=== PATIENT | female | born 1980 | race Caucasian/White ===

== ENCOUNTER 2022-10-07 11:15 | Emergency (ER) | payer OTHER, SELFPAY ==
[2022-10-07 11:30] VITALS: BP 125/74; PULSE 95; RESP 15; O2SAT 96; BMI 20.7
--- NOTE | 2022-10-07 12:09 | ED_ITS ---
HPI - Animal Bite General: Chief Complaint: Animal Bite Stated Complaint: Bite by [place] on right foot Time Seen by Provider: 10/07/22 11:57 History of Present Illness: 42-year-old female presents emergency room after she was bitten by copperhead snake about an hour ago. Present emergency room with mild swelling and discoloration on the lateral aspect of right foot. Has any nausea, difficulty breathing, difficulty swallowing, or chills. Patient further reviews that plastic bite went through her shoe. Associated symptoms: Deny headache(s) Review of Systems General: Reports: 10 or more systems reviewed and unremarkable except in HPI and below GI: Denies: abdominal pain, nausea, vomiting, hematemesis, coffee ground emesis, dysphagia or heartburn : Denies: flank pain, difficulty voiding, urinary frequency or urinary urgency Skin/Breast: Reports: skin swelling and other (snake bite ) Neuro: Denies: headache(s), numbness in extremities, weakness in extremities, lack of coordination, frequent falls, dizziness, vertigo or confusion All/Imm: Denies: urticaria, throat swelling, tongue swelling, facial swelling, acute wheezing, itchy eyes, seasonal rhinorrhea or food intolerance Physical Exam Const: COMMON NORMALS: no acute distress, average body habitus, patient oriented x3, no limitations, healthy appearing, alert and well nourished Eye: COMMON NORMALS: Equal, round and reactive pupils present, EOMs intact bilaterally, conjunctivae normal, no scleral icterus, no papilledema, normal visual owen by confrontation and fundi normal bilaterally CONJUNCTIVA: Yes conjunctivae normal PUPIL: Yes Equal, round and reactive pupils present DIRECT OPHTHALMOSCOPY: Yes no papilledema and Yes fundi normal bilaterally Neck/C-Spine: COMMON NORMALS: no JVD Lymph: LYMPHATIC: no lymphadenopathy noted Chest: COMMONS NORMALS: normal inspection of the chest, normal palpation of entire chest wall, normal inspection of the breasts and normal palpation of the breasts Breast/axilla inspection: Yes normal inspection of the breasts BREAST/AXILLA PALPATION: Yes normal palpation of the breasts Resp: COMMON NORMALS: normal respiratory effort, No retractions, No use of accessory muscles, clear to auscultation bilaterally and percussion normal AUSCULTATION: clear to auscultation bilaterally PERCUSSION: percussion normal Cardio: COMMON NORMALS: no JVD, regular rate, regular rhythm, S1 normal heart sound present, S2 normal heart sound present, No gallops present (Cardio), No clicks present (Cardio), No murmurs present (Cardio), No rub (Cardio) and Peripheral pulses 2+ throughout RATE: regular rate RHYTHM: regular rhythm HEART SOUNDS: S1 normal heart sound present and S2 normal heart sound present PERIPHERAL PULSES: Peripheral pulses 2+ throughout GI: COMMON NORMALS: Normal to inspection, nondistended, normoactive bowel sounds present, Soft to palpation, non-tender, No hepatosplenomegaly present, no masses and no bruits PALPATION: Yes Soft to palpation and Yes No hepatosplenomegaly present Extremity: OTHER: lateral aspect of right foot with some puncture wound and localized swelling and discoloration. Neuro: COMMON NORMALS: patient oriented x3 SENSORIUM/ORIENTATION: Yes alert Skin: NARRATIVE SKIN EXAM: Right foot around the lateral aspect with mild to moderate swelling with a single puncture wound noted. Course Reevaluation(s): Reevaluation #1: At 1:46 PM patient reexamined and noticed only 1 bite site with some mild swelling to the lateral aspect of the foot. No diffuse swelling beyond the ankle. Consultations: Consultation #1: At 12 PM discussed patient with poison control. Based on the patient's presenting symptoms and current situation she recommended observation for 6 hours. Mended obtaining basic labs including CBC, CMP and coags. No antivenom recommended at this time. Vital Signs: Vital signs: Vital Signs Pulse Rate 95 10/07/22 11:30 Respiratory Rate 15 10/07/22 11:30 Blood Pressure 125/74 10/07/22 11:30 Pulse Oximetry 96 10/07/22 11:30 Oxygen Delivery Me thod Room Air 10/07/22 11:30 MDM - Animal Bite Medical Decision Making Patient made comfortable emergency room room had extensive work-up and monitored for few hours. Was to monitor patient for about 6 to 7 hours according to poison control. And after waiting about 2 hours decided to leave AGAINST MEDICAL ADVICE. Leaving AGAINST MEDICAL ADVICE was thoroughly discussed. We discharged him with steroid and antibiotics. She was told to return to emergency room if increased swelling, pain and swelling beyond or around the ankle. Differential Diagnosis Likely bite by animal, cat bite, dog bite and rabies contact Lab Data 10/07/22 12:20 10/07/22 12:20 Laboratory Results WBC 7.9 10^3/uL (4.0-10.0) 10/07/22 12:20 RBC 3.71 10^6/uL (4.1-5.3) L 10/07/22 12:20 Hgb 12.8 g/dL (11.5-15.3) 10/07/22 12:20 Hct 37.4 % (37.0-47.0) 10/07/22 12:20 MCV 100.8 fl (81-99) H 10/07/22 12:20 MCH 34.5 pg (28.0-34.0) H 10/07/22 12:20 MCHC 34.2 g/dL (30.0-36.0) 10/07/22 12:20 RDW 13.0 % (12.1-15.1) 10/07/22 12:20 Plt Count 328 10^3/cmm (130-400) 10/07/22 12:20 MPV 9.4 fL (7.4-10.4) 10/07/22 12:20 Neut % (Auto) 66.9 % 10/07/22 12:20 Lymph % (Auto) 24.3 % 10/07/22 12:20 [place] % (Auto) 5.4 % 10/07/22 12:20 Eos % (Auto) 2.1 % 10/07/22 12:20 Baso % (Auto) 1.0 % 10/07/22 12:20 Neut # (Auto) 5.30 10^3/uL (1.8-7.7) 10/07/22 12:20 Lymph # (Auto) 1.9 10^3/uL (0.8-4.8) 10/07/22 12:20 [place] # (Auto) 0.4 10^3/uL (0.2-0.9) 10/07/22 12:20 Eos # (Auto) 0.2 10^3/uL (0.0-0.8) 10/07/22 12:20 Baso # (Auto) 0.1 10^3/uL (0.0-0.1) 10/07/22 12:20 Nucleated RBC % (auto) 0 % 10/07/22 12:20 Nucleated RBCs # 0.0 /100WBC 10/07/22 12:20 PT 13.70 SECONDS (12.1-14.9) 10/07/22 12:47 INR 1.02 (0.8-1.2) 10/07/22 12:47 APTT 25.3 SECONDS (23.9-36.7) 10/07/22 12:47 Sodium Cancelled 10/07/22 12:20 Potassium Cancelled 10/07/22 12:20 Chloride Cancelled 10/07/22 12:20 Carbon Dioxide Cancelled 10/07/22 12:20 Anion Gap Cancelled 10/07/22 12:20 BUN Cancelled 10/07/22 12:20 Creatinine Cancelled 10/07/22 12:20 GFR Calculation Cancelled 10/07/22 12:20 Glucose Cancelled 10/07/22 12:20 Calculated Osmolality Cancelled 10/07/22 12:20 Calcium Cancelled 10/07/22 12:20 Total Bilirubin Cancelled 10/07/22 12:20 AST Cancelled 10/07/22 12:20 ALT Cancelled 10/07/22 12:20 Alkaline Phosphatase Cancelled 10/07/22 12:20 Total Protein Cancelled 10/07/22 12:20 Albumin Cancelled 10/07/22 12:20 Globulin Cancelled 10/07/22 12:20 Discharge Plan Discharge Patient Disposition: Left Against Medical Advice Clinical Impression: Snake bite Condition: Stable Prescriptions: New Bactrim DS 800-160 mg tablet 1 tab PO BID 10 Days Qty: 20 0RF Medrol (Alexis) 4 mg tablets,dose pack 4 mg PO DAILY Qty: 21 0RF Referrals: Mandy Vasquez MD [Primary Care Provider] - Discharge Diet: Advance as tolerated Discharge Activity: Resume usual activity Coding Level of Care Code ED Client Relationship Manager for Chg Manish
[2022-10-07] MEDS: tetanus-dipt-pertussis 0.5 mL SDV IM (12:26)
[2022-10-07] MEDS: methylPREDNISolone sod succ 125 MG in water for injection-sterile 2 ML 24 MG IVP (12:27)
[2022-10-07 12:34] LABS: Basophils # 0.1 10^3/uL (0.0-0.1); Eosinophils # 0.2 10^3/uL (0.0-0.8); Eosinophils % 2.1 %; Hematocrit 37.4 % (37.0-47.0); Hemoglobin 12.8 g/dL (11.5-15.3); Lymphocytes # 1.9 10^3/uL (0.8-4.8); Lymphocytes % 24.3 %; Mean Corpuscular HGB Conc 34.2 g/dL (30.0-36.0); Mean Corpuscular Hemoglobin 34.5 pg (28.0-34.0); Mean Corpuscular Volume 100.8 fl (81-99); Mean Platelet Volume 9.4 fL (7.4-10.4); Monocytes # 0.4 10^3/uL (0.2-0.9); Monocytes % 5.4 %; Neutrophils % 66.9 %; Nucleated Red Blood Cells % 0 %; Platelet Count 328 10^3/cmm (130-400); Red Blood Count 3.71 10^6/uL (4.1-5.3); White Blood Count 7.9 10^3/uL (4.0-10.0)
[2022-10-07 13:09] LABS: INR 1.02 (0.8-1.2)
[2022-10-07 13:10] LABS: Partial Thromboplastin Time 25.3 SECONDS (23.9-36.7)
== END 2022-10-07 14:04 | disposition left against medical advice (07) ==
PROVIDERS: Emergency Provider Family Medicine; PCP Internal Medicine
DX: T63.091A Toxic effect of venom of other snake, accidental (unintentional), initial encounter (principal); Z53.21 Procedure and treatment not carried out due to patient leaving prior to being seen by health care provider; Z23 Encounter for immunization
CPT/HCPCS: 36415; 85025; 85610; 85730; 90471; 90715; 96374; 99284; J2930